=== PATIENT | male | born 1940 | race African-American/Black ===

== ENCOUNTER 2017-02-19 13:36 | Inpatient (IN) | payer MEDICARE, MEDICAID ==
[~2017-02-19] VITALS: Ht 188 cm; Wt 102.9 kg
[~2017-02-19 13:36] MED LIST: 45NS1000 IV; AMLO-511 PO; AUD NEB; BISA10S PR; INSLAN SQ; INSNOV SQ; IPRNEB IH; LACT30L PO; LEVO25TA9 PO; LORA0.5T2 PO; METO25XL PO; MOM30 PO; MULT-1203 PO; ONDA4 PO; PANT40TA25 PO; RISP2 PO; TAMS0.4C32 PO; VANC1I IV; VITAD1000 PO
[2017-02-19] MEDS ORDERED: METO10L PO (13:55)
[2017-02-19] MEDS ORDERED: QUET25TA PO (13:55)
[2017-02-19] MEDS ORDERED: INSU100C14 SQ (13:55)
[2017-02-19] MEDS ORDERED: POTA8CAP10 PO (13:55)
[2017-02-19] MEDS ORDERED: COMB5OS OU (13:55)
[2017-02-19] MEDS ORDERED: VITAD1000 PO (13:55)
[2017-02-19] MEDS ORDERED: GABA-533 PO (13:55)
[2017-02-19] MEDS ORDERED: TRAVZOS OU (13:55)
[2017-02-19] MEDS ORDERED: FURO20 PO (13:55)
[2017-02-19] MEDS ORDERED: DULA1.5P SQ (13:55)
[2017-02-19] MEDS ORDERED: INSU300I SQ (13:55)
[2017-02-19 14:27] LABS: GLUCOSE,POINT OF CARE 70 MG/DL (70-110)
[2017-02-19] MEDS ORDERED: SODIUM CHLORIDE 0.9% 1,000 ML IV ONE (14:30)
[2017-02-19] MEDS ORDERED: METO-296 PO (14:34)
[2017-02-19] MEDS ORDERED: KDUR10 PO (14:34)
[2017-02-19 14:40] LABS: BASOPHILS % (AUTO) 0.8 % (0.0-2.0); HEMATOCRIT 41.9 % (41-53); HEMOGLOBIN 13.6 g/dL (13.5-17.5); LYMPHOCYTES # (AUTO) 2.5 K/uL (1.0-4.8); LYMPHOCYTES % (AUTO) 35.5 % (22.0-44.0); MEAN CORPUSCULAR HEMOGLOBIN 27.2 pg (26.0-34.0); MEAN CORPUSCULAR HGB CONC 32.4 G/dL (31.0-37.0); MEAN CORPUSCULAR VOLUME 84 fL (80-100); MONOCYTES # (AUTO) 0.6 K/uL (0.1-1.0); MONOCYTES % (AUTO) 8.1 % (2.0-9.0); NEUTROPHILS # (AUTO) 3.8 K/uL (1.8-7.7); NEUTROPHILS % (AUTO) 53.6 % (40.0-70.0); PLATELET COUNT (AUTO) 188 K/uL (150-450); RED BLOOD CELL COUNT(AUTO) 4.99 MIL/uL (4.50-5.90); RED CELL DISTRIBUTION WIDTH 15.5 % (11.5-14.5)
[2017-02-19 14:54] LABS: INR 1.1 (0.9-1.1); PROTHROMBIN TIME 11.2 SEC (9.4-11.6)
[2017-02-19 15:00] LABS: ANION GAP 6 mmol/L (8-16); CALCIUM, TOTAL 8.1 mg/dL (8.8-10.5); CARBON DIOXIDE 27 mmol/L (22-29); CHLORIDE 106 mmol/L (98-107); CREATININE 1.27 mg/dL (0.60-1.30); GLOMERULAR FILTR. RATE CALC > 60 mL/min (>60); GLUCOSE,RANDOM 80 mg/dL (70-110); SODIUM SERUM 139 mmol/L (136-145); UREA NITROGEN, BLOOD 25 mg/dL (7-18)
[2017-02-19 15:06] LABS: ALANINE AMINOTRANSFERASE 28 U/L (12-78); ALBUMIN 2.9 g/dL (3.4-5.0); ALKALINE PHOSPHATASE 91 U/L (46-116); ASPARTATE AMINOTRANSFERASE 19 U/L (15-37); BILIRUBIN,TOTAL 0.2 mg/dL (0.1-1.0); TOTAL PROTEIN, SERUM 7.6 g/dL (6.4-8.2)
[2017-02-19 15:17] LABS: B-TYPE NATRIURETIC PEPTIDE 9 pg/mL (0-100)
[2017-02-19 15:24] LABS: APPEARANCE,URINE CLEAR (CLEAR); BILIRUBIN,URINE NEGATIVE (NEGATIVE); GLUCOSE, URINE (UA) NEGATIVE (NEGATIVE); KETONES,URINE NEGATIVE (NEGATIVE); LEUKOCYTE ESTERASE ,URINE NEGATIVE (NEGATIVE); NITRATE,URINE NEGATIVE (NEGATIVE); OCCULT BLOOD,URINE SMALL (NEGATIVE); PH,URINE 5.5 (5.0-8.0); PROTEIN,URINE NEGATIVE (NEGATIVE); UROBILINOGEN,URINE 0.2 mg/dL (<=1.0)
[2017-02-19 15:47] LABS: BACTERIA,URINE None Seen /HPF (None Seen); SQUAMOUS EPITHELIAL CELL,UR Few /LPF (None Seen); WBC,URINE 0-2 /HPF (0-5)
[2017-02-19] MEDS ORDERED: ALBUTEROL SULFATE 2.5 MG/0.5 ML NEB SOLUTION NEB PRN (16:45)
[2017-02-19] MEDS ORDERED: INSULIN ASPART 100 UNITS/ML SQ PRN (16:45)
[2017-02-19] MEDS ORDERED: MAGNESIUM HYDROXIDE SUSPENSION 30 ML UDCUP PO PRN (16:45)
[2017-02-19] MEDS ORDERED: IPRATROPIUM BROMIDE 0.5 MG/2.5 ML NEB SOLUTION NEB PRN (16:45)
[2017-02-19] MEDS ORDERED: BISACODYL 10 MG RECTAL RECTAL SUPPOSITORY PR PRN (16:45)
[2017-02-19] MEDS ORDERED: ZOLPIDEM TARTRATE 5 MG TABLET PO PRN (16:45)
[2017-02-19] MEDS ORDERED: ONDANSETRON HCL 4 MG/2 ML VIAL IVP PRN (16:45)
[2017-02-19] MEDS ORDERED: DEXTROSE 50%-WATER 25 GM/50 ML SYRINGE IVP PRN (16:45)
[2017-02-19 18:20] LABS: GLUCOSE,POINT OF CARE 68 MG/DL (70-110)
[2017-02-19 20:47] LABS: GLUCOSE,POINT OF CARE 222 MG/DL (70-110)
[2017-02-19] MEDS ORDERED: TRAVOPROST-Z 0.004% 2.5 ML OPHTHALMIC SOLUTION OU SCH (21:00)
[2017-02-19 21:58] VITALS: BP 145/87
[2017-02-19] MEDS: METOPROLOL SUCCINATE 25 MG ER TABLET PO SCH (23:15)
[2017-02-19] MEDS: BRIMONIDINE/TIMOLOL 0.2-0.5% 5 ML OPHTHALMIC SOLUTION OU SCH (23:15)
[2017-02-19] MEDS: HEPARIN SODIUM,PORCINE 5,000 UNITS/ML VIAL SQ SCH (23:16)
[2017-02-19 23:40] VITALS: BP 144/72
[2017-02-19] MEDS: INSULIN DETEMIR 100 UNITS/ML SQ SCH (23:47)
[2017-02-20 00:58] LABS: GLUCOMETER DEV NAME(LOC) 5S 2N; GLUCOSE,POINT OF CARE 169 MG/DL (70-110)
[2017-02-20 04:05] VITALS: BP 129/76
[2017-02-20] MEDS ORDERED: LEVOTHYROXINE SODIUM 25 MCG TABLET PO SCH (06:30)
[2017-02-20 07:52] VITALS: BP 131/69
[2017-02-20] MEDS: HEPARIN SODIUM,PORCINE 5,000 UNITS/ML VIAL SQ SCH (08:54)
[2017-02-20] MEDS: METOPROLOL SUCCINATE 25 MG ER TABLET PO SCH (08:55)
[2017-02-20] MEDS: BRIMONIDINE/TIMOLOL 0.2-0.5% 5 ML OPHTHALMIC SOLUTION OU SCH (08:55)
[2017-02-20] MEDS: INSULIN DETEMIR 100 UNITS/ML SQ SCH (09:00)
[2017-02-20] MEDS ORDERED: TAMSULOSIN HCL 0.4 MG CAPSULE PO SCH (09:00)
[2017-02-20] MEDS ORDERED: PANTOPRAZOLE SODIUM 40 MG DR TABLET PO SCH (09:00)
[2017-02-20] MEDS ORDERED: CHOLECALCIFEROL (VIT D3) 1,000 UNITS TABLET PO SCH (09:00)
[2017-02-20] MEDS ORDERED: LORazepam 2 MG/ML VIAL IVP PRN (11:15)
[2017-02-20 12:03] VITALS: BP 149/76
[2017-02-20] MEDS ORDERED: QUEtiapine FUMARATE 25 MG TABLET PO SCH (13:00)
[2017-02-20] MEDS: QUEtiapine FUMARATE 25 MG TABLET PO SCH ×2 (14:34→16:00)
[2017-02-20] MEDS: GABAPENTIN 400 MG CAPSULE PO SCH ×2 (14:34→16:00)
[2017-02-20] MEDS ORDERED: LORA1TAB3 PO (14:44)
[2017-02-20] MEDS ORDERED: ZOLP5 PO (14:45)
[2017-02-20 16:15] VITALS: BP 142/87
[2017-02-21 04:38] LABS: GLUCOMETER DEV NAME(LOC) 5N 1M; GLUCOSE,POINT OF CARE 85 MG/DL (70-110)
[2017-02-21 04:43] LABS: GLUCOMETER DEV NAME(LOC) 5N 1M; GLUCOSE,POINT OF CARE 128 MG/DL (70-110)
[2017-02-21 04:43] LABS: GLUCOMETER DEV NAME(LOC) 5N 1M; GLUCOSE,POINT OF CARE 121 MG/DL (70-110)
[2017-02-21] MEDS ORDERED: FUROSEMIDE 20 MG TABLET PO SCH (09:00)
== END 2017-02-20 18:50 | DRG 72 ==
LOC: EMS 13:37 → 5S 20:53
PROVIDERS: ADMIT Internal Medicine Geriatric Medicine; ATTEND Internal Medicine Geriatric Medicine
DX: G93.40 Encephalopathy, unspecified (principal); R56.9 Unspecified convulsions; D64.9 Anemia, unspecified; F25.9 Schizoaffective disorder, unspecified; E11.9 Type 2 diabetes mellitus without complications; E03.9 Hypothyroidism, unspecified; F03.90 Unspecified dementia, unspecified severity, without behavioral disturbance, psychotic disturbance, mood disturbance, and anxiety; N40.0 Benign prostatic hyperplasia without lower urinary tract symptoms; I10 Essential (primary) hypertension; K21.9 Gastro-esophageal reflux disease without esophagitis; F31.9 Bipolar disorder, unspecified; I25.2 Old myocardial infarction; M19.90 Unspecified osteoarthritis, unspecified site
CPT/HCPCS: 51702; 70450; 82962; 83605; 87040; 93005; 96360; 96361; 99285; J1644; J2060

== ENCOUNTER 2019-02-06 12:44 | Inpatient (IN) | payer MEDICARE, OTHER ==
[~2019-02-06] VITALS: Ht 182.9 cm; Wt 109.7 kg
[~2019-02-06 12:44] MED LIST changes: -45NS1000 IV; -AMLO-511 PO; -AUD NEB; -BISA10S PR; +BISA10SU11 PR; +CHOL100018 PO; +COMB5OS OU; +DULA1.5P SQ; +FURO20 PO; +GABA-533 PO; -INSLAN SQ; -INSNOV SQ; +INSU100C14 SQ; +INSU300I SQ; -IPRNEB IH; +KDUR10 PO; -LACT30L PO; +LORA-1000 PO; -LORA0.5T2 PO; +METO-296 PO; -MULT-1203 PO; -ONDA4 PO; -PANT40TA25 PO; +QUET25TA PO; -RISP2 PO; +TAMS-13 PO; -TAMS0.4C32 PO; +TRAVZOS OU; -VANC1I IV; -VITAD1000 PO; +ZOLP5 PO
[2019-02-06 14:48] LABS: BASOPHILS % (AUTO) 0.7 % (0.0-2.0); EOSINOPHILS % (AUTO) 0.6 % (1.0-6.0); HEMATOCRIT 36.9 % (41-53); HEMOGLOBIN 12.1 g/dL (13.5-17.5); LYMPHOCYTES # (AUTO) 1.2 K/uL (1.0-4.8); MEAN CORPUSCULAR HEMOGLOBIN 27.7 pg (26.0-34.0); MEAN CORPUSCULAR HGB CONC 32.9 G/dL (31.0-37.0); MEAN CORPUSCULAR VOLUME 84 fL (80-100); MONOCYTES # (AUTO) 0.8 K/uL (0.1-1.0); MONOCYTES % (AUTO) 14.8 % (2.0-9.0); NEUTROPHILS # (AUTO) 3.6 K/uL (1.8-7.7); NEUTROPHILS % (AUTO) 62.9 % (40.0-70.0); PLATELET COUNT (AUTO) 118 K/uL (150-450); RED BLOOD CELL COUNT(AUTO) 4.38 MIL/uL (4.50-5.90); RED CELL DISTRIBUTION WIDTH 17.3 % (11.5-14.5)
[2019-02-06 14:58] LABS: CALCIUM, TOTAL 8.1 mg/dL (8.8-10.5); CREATININE 2.51 mg/dL (0.60-1.30); POTASSIUM 4.6 mmol/L (3.5-5.1)
[2019-02-06] MEDS ORDERED: FUROSEMIDE 40 MG/4 ML VIAL IVP ONE (15:00)
[2019-02-06 15:06] LABS: ALBUMIN 2.9 g/dL (3.4-5.0); BILIRUBIN,TOTAL 0.3 mg/dL (0.1-1.0); TOTAL PROTEIN, SERUM 7.6 g/dL (6.4-8.2)
[2019-02-06] MEDS ORDERED: CHOL100018 PO (15:08)
[2019-02-06] MEDS ORDERED: 0.9% SODIUM CHLORIDE 10 ML SYRINGE IVP PRN ×2 (16:00→20:45)
[2019-02-06] MEDS ORDERED: ACETAMINOPHEN 325 MG TABLET PO PRN ×2 (16:00→20:45)
[2019-02-06] MEDS ORDERED: ONDANSETRON HCL 4 MG/2 ML VIAL IVP PRN ×2 (16:00→20:45)
[2019-02-06 18:07] LABS: INFLUENZA TYPE A NEGATIVE FOR TYPE A (NEGATIVE); INFLUENZA TYPE B NEGATIVE FOR TYPE B (NEGATIVE)
[2019-02-06] MEDS ORDERED: BISACODYL 10 MG RECTAL RECTAL SUPPOSITORY PR PRN (20:45)
[2019-02-06] MEDS ORDERED: ZOLPIDEM TARTRATE 5 MG TABLET PO PRN ×2 (20:45)
[2019-02-06 21:06] LABS: APPEARANCE,URINE TURBID (CLEAR); BILIRUBIN,URINE NEGATIVE (NEGATIVE); GLUCOSE, URINE (UA) NEGATIVE (NEGATIVE); KETONES,URINE NEGATIVE (NEGATIVE); LEUKOCYTE ESTERASE ,URINE LARGE (NEGATIVE); NITRATE,URINE NEGATIVE (NEGATIVE); OCCULT BLOOD,URINE LARGE (NEGATIVE); PROTEIN,URINE SEE CONFIRM (NEGATIVE); UROBILINOGEN,URINE 0.2 mg/dL (<=1.0)
[2019-02-06 21:17] LABS: SULFOSALICYLIC ACID,URINE 4+ (Negative)
[2019-02-06 21:18] LABS: WBC,URINE >100 /HPF (0-5)
[2019-02-06 21:20] LABS: BACTERIA,URINE Many /HPF (None Seen); SQUAMOUS EPITHELIAL CELL,UR Moderate /LPF (None Seen)
[2019-02-06] MEDS: FUROSEMIDE 20 MG/2 ML VIAL IVP SCH (22:36)
[2019-02-06] MEDS: INSULIN GLARGINE,HUM.REC.ANLOG 100 UNITS/ML SQ SCH (23:19)
[2019-02-06 23:23] LABS: GLUCOSE,POINT OF CARE 128 MG/DL (70-110)
[2019-02-07] MEDS: HEPARIN SODIUM,PORCINE 5,000 UNITS/ML VIAL SQ SCH ×4 (00:10→23:46)
[2019-02-07] MEDS: LEVOTHYROXINE SODIUM 25 MCG TABLET PO SCH (06:37)
[2019-02-07 06:39] LABS: BASOPHILS % (AUTO) 0.5 % (0.0-2.0); EOSINOPHILS % (AUTO) 2.2 % (1.0-6.0); HEMATOCRIT 39.6 % (41-53); HEMOGLOBIN 12.8 g/dL (13.5-17.5); LYMPHOCYTES # (AUTO) 1.4 K/uL (1.0-4.8); LYMPHOCYTES % (AUTO) 27.3 % (22.0-44.0); MEAN CORPUSCULAR HEMOGLOBIN 27.3 pg (26.0-34.0); MEAN CORPUSCULAR HGB CONC 32.3 G/dL (31.0-37.0); MEAN CORPUSCULAR VOLUME 85 fL (80-100); MONOCYTES # (AUTO) 0.7 K/uL (0.1-1.0); MONOCYTES % (AUTO) 13.1 % (2.0-9.0); NEUTROPHILS # (AUTO) 2.9 K/uL (1.8-7.7); NEUTROPHILS % (AUTO) 56.9 % (40.0-70.0); PLATELET COUNT (AUTO) 130 K/uL (150-450); RED BLOOD CELL COUNT(AUTO) 4.68 MIL/uL (4.50-5.90); RED CELL DISTRIBUTION WIDTH 17.3 % (11.5-14.5)
[2019-02-07 06:52] LABS: CALCIUM, TOTAL 8.5 mg/dL (8.8-10.5); CREATININE 2.21 mg/dL (0.60-1.30); MAGNESIUM 2.1 mg/dL (1.80-2.40); POTASSIUM 4.1 mmol/L (3.5-5.1)
[2019-02-07] MEDS: QUEtiapine FUMARATE 25 MG TABLET PO SCH ×3 (08:40→16:00)
[2019-02-07] MEDS: PANTOPRAZOLE SODIUM 40 MG DR TABLET PO SCH (08:40)
[2019-02-07] MEDS: FUROSEMIDE 20 MG/2 ML VIAL IVP SCH ×4 (08:40→20:59)
[2019-02-07] MEDS: INSULIN GLARGINE,HUM.REC.ANLOG 100 UNITS/ML SQ SCH ×2 (09:00→22:23)
[2019-02-07] MEDS: METOPROLOL SUCCINATE 25 MG ER TABLET PO SCH ×2 (09:32→22:23)
[2019-02-07] MEDS: BRIMONIDINE/TIMOLOL 0.2-0.5% 5 ML OPHTHALMIC SOLUTION OU SCH ×2 (09:32→20:59)
[2019-02-07] MEDS: CHOLECALCIFEROL (VIT D3) 1,000 UNITS TABLET PO SCH (09:32)
[2019-02-07] MEDS: GABAPENTIN 400 MG CAPSULE PO SCH ×5 (09:32→22:23)
[2019-02-07] MEDS: TAMSULOSIN HCL 0.4 MG CAPSULE PO SCH (09:36)
[2019-02-07] MEDS: CefTRIAXone 1 GM/DEXTROSE 50 ML IV SCH (11:42)
[2019-02-07 11:51] LABS: GLUCOSE,POINT OF CARE 80 MG/DL (70-110)
[2019-02-07] MEDS: DOXYCYCLINE HYCLATE 100 MG in DEXTROSE 5%-WATER 100 ML IV SCH (12:15)
[2019-02-07 12:22] LABS: LACTIC ACID 0.6 mmol/L (0.4-2.0)
[2019-02-07 15:40] VITALS: BP 126/62
[2019-02-07 16:16] VITALS: BP 124/72
[2019-02-07] MEDS ORDERED: INSULIN LISPRO 100 UNITS/ML SQ PRN (18:15)
[2019-02-07] MEDS ORDERED: DEXTROSE 50%-WATER 25 GM/50 ML SYRINGE IVP PRN (18:15)
[2019-02-07 18:53] VITALS: BP 138/79
[2019-02-07 20:09] VITALS: BP 126/96
[2019-02-07] MEDS: TRAVOPROST-Z 0.004% 2.5 ML OPHTHALMIC SOLUTION OU SCH (20:59)
[2019-02-08] VITALS (9 sets, daily range): BP systolic 121–137; BP diastolic 42–116
[2019-02-08] MEDS: DOXYCYCLINE HYCLATE 100 MG in DEXTROSE 5%-WATER 100 ML IV SCH ×3 (00:24→23:18)
[2019-02-08] MEDS: HEPARIN SODIUM,PORCINE 5,000 UNITS/ML VIAL SQ SCH ×3 (08:00→23:24)
[2019-02-08] MEDS: LEVOTHYROXINE SODIUM 25 MCG TABLET PO SCH (08:44)
[2019-02-08] MEDS: FUROSEMIDE 20 MG/2 ML VIAL IVP SCH (08:45)
[2019-02-08] MEDS: BRIMONIDINE/TIMOLOL 0.2-0.5% 5 ML OPHTHALMIC SOLUTION OU SCH ×2 (08:46→21:13)
[2019-02-08] MEDS: TAMSULOSIN HCL 0.4 MG CAPSULE PO SCH (08:47)
[2019-02-08] MEDS: CHOLECALCIFEROL (VIT D3) 1,000 UNITS TABLET PO SCH (08:48)
[2019-02-08] MEDS: INSULIN GLARGINE,HUM.REC.ANLOG 100 UNITS/ML SQ SCH ×2 (09:00→20:44)
[2019-02-08] MEDS: PANTOPRAZOLE SODIUM 40 MG DR TABLET PO SCH (09:00)
[2019-02-08] MEDS: METOPROLOL SUCCINATE 25 MG ER TABLET PO SCH ×2 (09:02→21:08)
[2019-02-08 09:32] LABS: BASOPHILS % (AUTO) 0.4 % (0.0-2.0); EOSINOPHILS % (AUTO) 2.4 % (1.0-6.0); HEMATOCRIT 38.8 % (41-53); HEMOGLOBIN 12.6 g/dL (13.5-17.5); LYMPHOCYTES # (AUTO) 1.2 K/uL (1.0-4.8); LYMPHOCYTES % (AUTO) 25.4 % (22.0-44.0); MEAN CORPUSCULAR HEMOGLOBIN 27.3 pg (26.0-34.0); MEAN CORPUSCULAR HGB CONC 32.5 G/dL (31.0-37.0); MEAN CORPUSCULAR VOLUME 84 fL (80-100); MONOCYTES # (AUTO) 0.6 K/uL (0.1-1.0); MONOCYTES % (AUTO) 12.5 % (2.0-9.0); NEUTROPHILS # (AUTO) 2.8 K/uL (1.8-7.7); NEUTROPHILS % (AUTO) 59.3 % (40.0-70.0); PLATELET COUNT (AUTO) 152 K/uL (150-450); RED BLOOD CELL COUNT(AUTO) 4.62 MIL/uL (4.50-5.90); RED CELL DISTRIBUTION WIDTH 17.5 % (11.5-14.5)
[2019-02-08 09:43] LABS: HEMOGLOBIN A1C 6.5 % (4.5-6.2)
[2019-02-08 10:04] LABS: CALCIUM, TOTAL 8.1 mg/dL (8.8-10.5); CHOL/HDL RATIO 3.2 (4.2-7.3); CREATININE 2.19 mg/dL (0.60-1.30); FREE T4 (FREE THYROXINE) 1.33 ng/dL (0.76-1.46); POTASSIUM 4.1 mmol/L (3.5-5.1); THYROID STIMULATING HORMONE 2.9 uIU/mL (0.36-3.74)
[2019-02-08] MEDS: GABAPENTIN 400 MG CAPSULE PO SCH ×4 (10:18→21:08)
[2019-02-08] MEDS: CefTRIAXone 1 GM/DEXTROSE 50 ML IV SCH (12:19)
[2019-02-08 13:56] LABS: APPEARANCE,URINE CLOUDY (CLEAR); BILIRUBIN,URINE NEGATIVE (NEGATIVE); GLUCOSE, URINE (UA) NEGATIVE (NEGATIVE); KETONES,URINE NEGATIVE (NEGATIVE); LEUKOCYTE ESTERASE ,URINE MODERATE (NEGATIVE); NITRATE,URINE NEGATIVE (NEGATIVE); OCCULT BLOOD,URINE SMALL (NEGATIVE); PROTEIN,URINE SEE CONFIRM (NEGATIVE); UROBILINOGEN,URINE 0.2 mg/dL (<=1.0)
[2019-02-08 13:59] LABS: SULFOSALICYLIC ACID,URINE 2+ (Negative)
[2019-02-08 14:00] LABS: BACTERIA,URINE Moderate /HPF (None Seen)
[2019-02-08 14:12] LABS: CREATININE,URINE RANDOM 137.1 mg/dL (30.0-125.0); PROTEIN,URINE RANDOM 134 mg/dL (0-11.9); UREA NITROGEN,URINE RANDOM 875 mg/dL (350-1000)
[2019-02-08] MEDS: TRAVOPROST-Z 0.004% 2.5 ML OPHTHALMIC SOLUTION OU SCH (21:12)
[2019-02-09 00:18] VITALS: BP 140/75
[2019-02-09 04:23] VITALS: BP 129/58
[2019-02-09] MEDS: LEVOTHYROXINE SODIUM 25 MCG TABLET PO SCH (06:38)
[2019-02-09 08:28] VITALS: BP 125/76
[2019-02-09] MEDS: METOPROLOL SUCCINATE 25 MG ER TABLET PO SCH ×2 (09:00→20:40)
[2019-02-09] MEDS: INSULIN GLARGINE,HUM.REC.ANLOG 100 UNITS/ML SQ SCH ×2 (09:00→21:00)
[2019-02-09] MEDS: GABAPENTIN 400 MG CAPSULE PO SCH ×2 (09:00→12:53)
[2019-02-09] MEDS: TAMSULOSIN HCL 0.4 MG CAPSULE PO SCH (09:00)
[2019-02-09] MEDS: CHOLECALCIFEROL (VIT D3) 1,000 UNITS TABLET PO SCH (09:00)
[2019-02-09] MEDS: PANTOPRAZOLE SODIUM 40 MG DR TABLET PO SCH (09:00)
[2019-02-09] MEDS: BRIMONIDINE/TIMOLOL 0.2-0.5% 5 ML OPHTHALMIC SOLUTION OU SCH ×2 (09:24→20:34)
[2019-02-09] MEDS: HEPARIN SODIUM,PORCINE 5,000 UNITS/ML VIAL SQ SCH ×3 (09:30→23:58)
[2019-02-09 09:35] LABS: BASOPHILS % (AUTO) 0.5 % (0.0-2.0); EOSINOPHILS % (AUTO) 3.5 % (1.0-6.0); HEMATOCRIT 37.4 % (41-53); LYMPHOCYTES # (AUTO) 1.7 K/uL (1.0-4.8); LYMPHOCYTES % (AUTO) 39.6 % (22.0-44.0); MEAN CORPUSCULAR HEMOGLOBIN 27.1 pg (26.0-34.0); MEAN CORPUSCULAR HGB CONC 32.2 G/dL (31.0-37.0); MEAN CORPUSCULAR VOLUME 84 fL (80-100); MONOCYTES # (AUTO) 0.7 K/uL (0.1-1.0); MONOCYTES % (AUTO) 15.1 % (2.0-9.0); NEUTROPHILS # (AUTO) 1.8 K/uL (1.8-7.7); NEUTROPHILS % (AUTO) 41.3 % (40.0-70.0); PLATELET COUNT (AUTO) 163 K/uL (150-450); RED BLOOD CELL COUNT(AUTO) 4.44 MIL/uL (4.50-5.90)
[2019-02-09 09:41] LABS: CALCIUM, TOTAL 8.3 mg/dL (8.8-10.5); CREATININE 1.95 mg/dL (0.60-1.30)
[2019-02-09] MEDS ORDERED: MAGNESIUM SULFATE 2 GM, MVI, ADULT NO.1 WITH VIT K 10 ML, THIAMINE HCL 100 MG, FOLIC AC... IV ONE ×5 (10:45)
[2019-02-09] MEDS: CefTRIAXone 1 GM/DEXTROSE 50 ML IV SCH (11:33)
[2019-02-09 11:55] LABS: ABG A-A DIFF O2 32.7 mmHg (10-20.0); ABG BASE EXCESS -4.4 mmol/L (-2.0-3.0); ABG CARBOXYHEMOGLOBIN 0.7 % (0.0-1.5); ABG HCO3 21.3 mmol/L (22.0-26.0); ABG METHEMOGLOBIN 0.3 % (0.0-1.5); ABG OXYGEN CONTENT 16.7 mL/dL (15.0-23.0); ABG OXYGEN SATURATION 95.2 % (95.0-98.0); ABG OXYHEMOGLOBIN 94.2 % (94.0-100.0); ABG PCO2 34 mmHg (35-45); ABG PH 7.393 (7.35-7.450); ABG TOTAL HEMOGLOBIN 12.6 G/dL (12.0-18.0); O2 DEVICE,BLOOD GAS ROOM AIR (ROOM AIR); PO2, ARTERIAL BG 76.1 mmHg (75.0-83.0); SITE, BLOOD GAS RT RADIAL; SOURCE, BLOOD GAS ARTERIAL; TEMPERATURE, FAHRENHEIT, BG 97.7 FAHREN (96.0-98.6)
[2019-02-09 12:02] VITALS: BP 120/65
[2019-02-09] MEDS: DOXYCYCLINE HYCLATE 100 MG in DEXTROSE 5%-WATER 100 ML IV SCH (12:53)
[2019-02-09 16:29] VITALS: BP 129/61
[2019-02-09] MEDS ORDERED: SODIUM CHLORIDE 0.9% 1,000 ML ONE (18:27)
[2019-02-09 20:00] VITALS: BP 148/75
[2019-02-09] MEDS: TRAVOPROST-Z 0.004% 2.5 ML OPHTHALMIC SOLUTION OU SCH (20:34)
[2019-02-09 21:06] LABS: GLUCOSE,POINT OF CARE 115 MG/DL (70-110)
[2019-02-10] VITALS (7 sets, daily range): BP systolic 127–155; BP diastolic 66–84
[2019-02-10] MEDS: DOXYCYCLINE HYCLATE 100 MG in DEXTROSE 5%-WATER 100 ML IV SCH ×2 (00:15→11:46)
[2019-02-10] MEDS ORDERED: SODIUM CHLORIDE 0.9% 1,000 ML IV SCH (00:30)
[2019-02-10 05:32] LABS: BASOPHILS % (AUTO) 0.6 % (0.0-2.0); HEMATOCRIT 37.2 % (41-53); LYMPHOCYTES # (AUTO) 1.4 K/uL (1.0-4.8); LYMPHOCYTES % (AUTO) 40.5 % (22.0-44.0); MEAN CORPUSCULAR HEMOGLOBIN 27.2 pg (26.0-34.0); MEAN CORPUSCULAR HGB CONC 32.1 G/dL (31.0-37.0); MEAN CORPUSCULAR VOLUME 85 fL (80-100); MONOCYTES # (AUTO) 0.5 K/uL (0.1-1.0); MONOCYTES % (AUTO) 12.9 % (2.0-9.0); NEUTROPHILS # (AUTO) 1.5 K/uL (1.8-7.7); PLATELET COUNT (AUTO) 176 K/uL (150-450); RED CELL DISTRIBUTION WIDTH 16.7 % (11.5-14.5)
[2019-02-10 05:52] LABS: ALBUMIN 2.8 g/dL (3.4-5.0); BILIRUBIN,TOTAL 0.4 mg/dL (0.1-1.0); CALCIUM, TOTAL 8.3 mg/dL (8.8-10.5); CREATININE 1.65 mg/dL (0.60-1.30); POTASSIUM 4.3 mmol/L (3.5-5.1); TOTAL PROTEIN, SERUM 7.6 g/dL (6.4-8.2)
[2019-02-10] MEDS: LEVOTHYROXINE SODIUM 25 MCG TABLET PO SCH (06:16)
[2019-02-10] MEDS: CHOLECALCIFEROL (VIT D3) 1,000 UNITS TABLET PO SCH ×2 (08:20→09:00)
[2019-02-10] MEDS: BRIMONIDINE/TIMOLOL 0.2-0.5% 5 ML OPHTHALMIC SOLUTION OU SCH ×2 (08:20→21:59)
[2019-02-10] MEDS: HEPARIN SODIUM,PORCINE 5,000 UNITS/ML VIAL SQ SCH ×2 (08:20→19:00)
[2019-02-10] MEDS: PANTOPRAZOLE SODIUM 40 MG DR TABLET PO SCH ×2 (08:20→09:00)
[2019-02-10] MEDS: TAMSULOSIN HCL 0.4 MG CAPSULE PO SCH ×2 (08:21→09:00)
[2019-02-10] MEDS: METOPROLOL SUCCINATE 25 MG ER TABLET PO SCH ×3 (08:21→21:26)
[2019-02-10] MEDS: INSULIN GLARGINE,HUM.REC.ANLOG 100 UNITS/ML SQ SCH (08:53)
[2019-02-10] MEDS: CefTRIAXone 1 GM/DEXTROSE 50 ML IV SCH (11:46)
[2019-02-10] MEDS ORDERED: HydrALAZINE HCL 20 MG/ML VIAL IVP PRN (15:15)
[2019-02-10] MEDS ORDERED: INSULIN GLARGINE,HUM.REC.ANLOG 100 UNITS/ML SQ SCH (21:00)
[2019-02-10] MEDS: TRAVOPROST-Z 0.004% 2.5 ML OPHTHALMIC SOLUTION OU SCH (21:59)
[2019-02-11] MEDS ORDERED: SODIUM CHLORIDE 0.9% 250 ML IV ONE (00:19)
[2019-02-11] MEDS: HEPARIN SODIUM,PORCINE 5,000 UNITS/ML VIAL SQ SCH ×2 (00:23→08:33)
[2019-02-11] MEDS: DOXYCYCLINE HYCLATE 100 MG in DEXTROSE 5%-WATER 100 ML IV SCH ×2 (00:23→13:28)
[2019-02-11 03:58] VITALS: BP 135/84
[2019-02-11 05:22] LABS: GLUCOMETER DEV NAME(LOC) 5S.1; GLUCOSE,POINT OF CARE 134 MG/DL (70-110)
[2019-02-11 05:22] LABS: GLUCOMETER DEV NAME(LOC) 5S.1; GLUCOSE,POINT OF CARE 148 MG/DL (70-110)
[2019-02-11] MEDS: LEVOTHYROXINE SODIUM 25 MCG TABLET PO SCH (05:40)
[2019-02-11] MEDS: BRIMONIDINE/TIMOLOL 0.2-0.5% 5 ML OPHTHALMIC SOLUTION OU SCH (08:33)
[2019-02-11] MEDS: METOPROLOL SUCCINATE 25 MG ER TABLET PO SCH (08:34)
[2019-02-11] MEDS: PANTOPRAZOLE SODIUM 40 MG DR TABLET PO SCH (08:34)
[2019-02-11] MEDS: CHOLECALCIFEROL (VIT D3) 1,000 UNITS TABLET PO SCH (08:35)
[2019-02-11] MEDS: TAMSULOSIN HCL 0.4 MG CAPSULE PO SCH (08:35)
[2019-02-11 08:44] VITALS: BP 135/74
[2019-02-11] MEDS: CefTRIAXone 1 GM/DEXTROSE 50 ML IV SCH (11:11)
[2019-02-11 11:22] LABS: ALBUMIN URINE (ELP) 59.4 %
[2019-02-11 11:46] VITALS: BP 147/71
[2019-02-13] MEDS ORDERED: MISC MED-CONVERTED FROM AMBULATORY (Dulaglutide (Trulicity) 1.5 MG) SQ SCH (09:00)
[2019-02-13 10:34] LABS: GLUCOMETER DEV NAME(LOC) 5S.2A; GLUCOSE,POINT OF CARE 131 MG/DL (70-110)
[2019-02-13 10:34] LABS: GLUCOMETER DEV NAME(LOC) 5S.2A; GLUCOSE,POINT OF CARE 230 MG/DL (70-110)
== END 2019-02-11 14:30 | DRG 177 ==
LOC: EMS 12:46 → AHU 02-07 12:12 → 5S 02-10 17:01
PROVIDERS: ADMIT Internal Medicine; ATTEND Internal Medicine
DX: J69.0 Pneumonitis due to inhalation of food and vomit (principal); J96.91 Respiratory failure, unspecified with hypoxia; G93.40 Encephalopathy, unspecified; N17.9 Acute kidney failure, unspecified; I13.0 Hypertensive heart and chronic kidney disease with heart failure and stage 1 through stage 4 chronic kidney disease, or unspecified chronic kidney disease; E46 Unspecified protein-calorie malnutrition; I25.10 Atherosclerotic heart disease of native coronary artery without angina pectoris; N18.3 Chronic kidney disease, stage 3 (moderate); D64.9 Anemia, unspecified; D69.6 Thrombocytopenia, unspecified; E03.9 Hypothyroidism, unspecified; E11.22 Type 2 diabetes mellitus with diabetic chronic kidney disease; F25.9 Schizoaffective disorder, unspecified; I50.9 Heart failure, unspecified; N40.0 Benign prostatic hyperplasia without lower urinary tract symptoms; I25.2 Old myocardial infarction; Z68.32 Body mass index [BMI] 32.0-32.9, adult
CPT/HCPCS: 36600; 70450; 71250; 76770; 82570; 82805; 83036; 83605; 83735; 84145; 84156; 84166; 84439; 84443; 84540; 87040; 87086; 87804; 92610; 93005; 93306; 96374; 96375; G0378; J0696; J1644; J1815; J1940; J3411; J3475; J3490; J7030; J7050; J7060